=== PATIENT | female | born 1985 | race Caucasian/White ===

== ENCOUNTER 2019-04-14 17:34 | Inpatient (IN) | payer MEDICAID ==
[~2019-04-14] VITALS: Ht 170.2 cm; Wt 70.2 kg
[2019-04-14] MEDS ORDERED: POLYETHYLENE GLYCOL 17 GM PACKET PO PRN (18:00)
[2019-04-14] MEDS ORDERED: ONDANSETRON ODT 4 MG PO PRN (18:00)
[2019-04-14] MEDS ORDERED: DOCUSATE 100 MG CAPSULE PO PRN (18:00)
[2019-04-14] MEDS ORDERED: BISACODYL 10 MG SUPP PR PRN (18:00)
[2019-04-14] MEDS: PLEASE ENTER HEIGHT AND WEIGHT MC SCH (21:00)
[2019-04-14] MEDS: PLEASE ENTER ALLERGIES MC SCH (22:00)
[2019-04-14 22:01] VITALS: BP 108/61
[2019-04-14] MEDS: TRAZODONE 100MG TABLET PO SCH (22:06)
[2019-04-14] MEDS: PRAZOSIN 1 MG CAPSULE PO SCH (22:06)
[2019-04-14 22:43] LABS: CHOLESTEROL, TOTAL 148 mg/dL (140-239); TRIGLYCERIDES 56 mg/dL (50-200); VLDL CHOLESTEROL 11 mg/dL (0-25)
[2019-04-14 22:47] LABS: CHOL/HDL RATIO 1.3; FREE T4 (FREE THYROXINE) 0.85 ng/dL (0.76-1.46); HDL CHOL % 74 % (28-40); HDL CHOLESTEROL (DIRECT) 110 mg/dL (40-60); LDL CHOLESTEROL,CALCULATED 27 mg/dL (54-169); LDL/HDL RATIO 0.2 (0.5-3.0)
[2019-04-15 03:10] VITALS: BP 108/61
[2019-04-15] MEDS: PLEASE ENTER HEIGHT AND WEIGHT MC SCH (05:00)
[2019-04-15] MEDS: PLEASE ENTER ALLERGIES MC SCH (06:00)
[2019-04-15 07:31] LABS: MICROSCOPIC INDICATED
[2019-04-15 07:43] VITALS: BP 93/63
[2019-04-15 08:53] LABS: CULTURE INDICATED? YES
[2019-04-15] MEDS ORDERED: VENLAFAXINE 75 MG CAP ER PO SCH (09:00)
[2019-04-15] MEDS: PANTOPRAZOLE 20MG TABLET PO SCH (09:55)
[2019-04-15 12:08] LABS: TROPONIN I < 0.015 ng/mL (0.000-0.045)
[2019-04-15 14:45] LABS: TROPONIN I < 0.015 ng/mL (0.000-0.045)
[2019-04-15 18:29] LABS: TROPONIN I < 0.015 ng/mL (0.000-0.045)
[2019-04-15 19:28] VITALS: BP 109/74
[2019-04-15] MEDS: TRAZODONE 100MG TABLET PO SCH (20:16)
[2019-04-15] MEDS: PRAZOSIN 1 MG CAPSULE PO SCH (20:17)
[2019-04-15] MEDS: CARBAMAZEPINE 200 MG TABLET PO SCH (20:17)
[2019-04-16] MEDS: PANTOPRAZOLE 20MG TABLET PO SCH (06:22)
[2019-04-16 07:46] VITALS: BP 98/60
[2019-04-16] MEDS: VENLAFAXINE 75 MG CAP ER PO SCH (08:09)
[2019-04-16] MEDS: HYDROXYZINE PAMOATE 50MG CAP PO PRN (17:02)
[2019-04-16] MEDS: TRAZODONE 100MG TABLET PO SCH (19:55)
[2019-04-16] MEDS: CARBAMAZEPINE 200 MG TABLET PO SCH (19:55)
[2019-04-16] MEDS: PRAZOSIN 1 MG CAPSULE PO SCH (19:55)
[2019-04-16 20:00] VITALS: BP 116/78
[2019-04-17 07:31] VITALS: BP 114/65
[2019-04-17] MEDS: ACETAMINOPHEN 325 MG TABLET PO PRN (08:31)
[2019-04-17] MEDS: VENLAFAXINE 75 MG CAP ER PO SCH (08:31)
[2019-04-17] MEDS: PANTOPRAZOLE 20MG TABLET PO SCH (08:31)
[2019-04-17] MEDS: HYDROXYZINE PAMOATE 50MG CAP PO PRN ×3 (10:32→21:47)
[2019-04-17 19:39] VITALS: BP 116/79
[2019-04-17] MEDS: TRAZODONE 100MG TABLET PO SCH (20:56)
[2019-04-17] MEDS: PRAZOSIN 1 MG CAPSULE PO SCH (20:56)
[2019-04-17] MEDS: CARBAMAZEPINE 200 MG TABLET PO SCH (20:56)
[2019-04-18] MEDS: PANTOPRAZOLE 20MG TABLET PO SCH (05:42)
[2019-04-18 07:49] VITALS: BP 107/70
[2019-04-18] MEDS: VENLAFAXINE 75 MG CAP ER PO SCH (09:07)
[2019-04-18] MEDS: ACETAMINOPHEN 325 MG TABLET PO PRN ×2 (09:08→20:37)
[2019-04-18] MEDS: HYDROXYZINE PAMOATE 50MG CAP PO PRN (10:36)
[2019-04-18] MEDS ORDERED: PRAZ1CAP2 PO (16:30)
[2019-04-18] MEDS ORDERED: TRAZ-137 PO (16:30)
[2019-04-18] MEDS ORDERED: CARB200T4 PO (16:30)
[2019-04-18] MEDS ORDERED: HYDR50CA2 PO (16:30)
[2019-04-18] MEDS ORDERED: VENL75CA6 PO (16:30)
[2019-04-18] MEDS ORDERED: PANT20TA3 PO (16:30)
[2019-04-18] MEDS ORDERED: CLON0.5T11 PO (16:30)
[2019-04-18 19:49] VITALS: BP 104/70
[2019-04-18] MEDS: TRAZODONE 100MG TABLET PO SCH (20:20)
[2019-04-18] MEDS: CARBAMAZEPINE 200 MG TABLET PO SCH (20:20)
[2019-04-18] MEDS: PRAZOSIN 1 MG CAPSULE PO SCH (20:20)
[2019-04-19] MEDS: PANTOPRAZOLE 20MG TABLET PO SCH (05:00)
[2019-04-19 07:10] VITALS: BP 100/64
[2019-04-19] MEDS: ACETAMINOPHEN 325 MG TABLET PO PRN (08:08)
[2019-04-19] MEDS: VENLAFAXINE 75 MG CAP ER PO SCH (09:20)
== END 2019-04-19 09:30 | disposition home or self-care (01) | DRG 751 ==
LOC: 3E 20:38
PROVIDERS: ADMIT Psychiatry & Neurology Psychosomatic Medicine; ATTEND Psychiatry & Neurology Psychosomatic Medicine
DX: F33.2 Major depressive disorder, recurrent severe without psychotic features (principal); F17.210 Nicotine dependence, cigarettes, uncomplicated; F41.1 Generalized anxiety disorder; F43.10 Post-traumatic stress disorder, unspecified; G47.00 Insomnia, unspecified; G89.29 Other chronic pain; K21.9 Gastro-esophageal reflux disease without esophagitis; R10.9 Unspecified abdominal pain; S00.37XA Other superficial bite of nose, initial encounter; W54.0XXA Bitten by dog, initial encounter; Y93.89 Activity, other specified; Y92.89 Other specified places as the place of occurrence of the external cause; Y99.8 Other external cause status
CPT/HCPCS: 36415; 80061; 81001; 82607; 84439; 84443; 84484; 84703; 87086; 93005